=== PATIENT | male | born 1955 | race Caucasian/White ===

== ENCOUNTER 2020-06-05 13:52 | Outpatient (CLI) | payer OTHER, SELFPAY ==
--- NOTE | ~2020-06-05 | XR_ITS ---
XR chest 2V DATE: 06/05/2020 14:16 INDICATION: Pacemaker lead check TECHNIQUE: PA and lateral views COMPARISON: 10/23/2017 two-view chest FINDINGS: Left dual-lead pacemaker device with leads overlying right atrium and right ventricle. Normal heart size. No hilar or mediastinal enlargement. No pulmonary infiltrate or consolidation, ple ural effusion or pulmonary vascular congestion or pneumothorax. IMPRESSION: No active cardiopulmonary disease Left dual-lead pacemaker device Reviewed, dictated and finalized at location A.
== END 2020-06-05 13:53 | disposition home or self-care (01) ==
LOC: ANHIMG 14:02
PROVIDERS: Visit Provider Internal Medicine Cardiovascular Disease
DX: T82.110A Breakdown (mechanical) of cardiac electrode, initial encounter (principal); Z45.018 Encounter for adjustment and management of other part of cardiac pacemaker; Z95.0 Presence of cardiac pacemaker
CPT/HCPCS: 71046

== ENCOUNTER 2020-06-11 01:14 | Outpatient (CLI) | payer OTHER, SELFPAY ==
[2020-06-11 20:51] LABS: SARS-CoV-2 RNA PCR Negative
== END 2020-06-11 01:15 | disposition home or self-care (01) ==
LOC: ANHCOVIDDT 01:16
PROVIDERS: Visit Provider Internal Medicine Cardiovascular Disease
DX: Z01.812 Encounter for preprocedural laboratory examination (principal); Z20.828 Contact with and (suspected) exposure to other viral communicable diseases
CPT/HCPCS: 87635; C9803; U0003

== ENCOUNTER 2020-06-13 05:22 | Day surgery (SDC) | payer OTHER, SELFPAY ==
[2020-06-12 16:15] VITALS: BMI 27.9
[2020-06-13] VITALS (18 sets, daily range): BP systolic 104–179; BP diastolic 70–93; PULSE 50–62; RESP 11–18; TEMP 36.6–37.6; O2SAT 53–100; BMI 29.0
--- NOTE | ~2020-06-13 | XR_ITS ---
EXAMINATION: XR chest 2V DATE: 06/14/2020 08:43 INDICATION: 24 hours post pacemaker insertion TECHNIQUE: PA and lateral views of the chest are obtained. COMPARISON: 06/13/2020 FINDINGS: The lungs are free of acute opacities. There is no pleural effusion or pneumothorax. There is stable cardiomegaly. There is mild thoracic spondylosis. Again noted is a dual-lead pacemaker of t he left upper chest wall. Three pacemaker leads are again identified, two of which course into the ri ght ventricle and one of which does not appear to be attached to the pacer. IMPRESSION: 1. Pacemaker revision without evidence of pneumothorax. 2. Stable cardiomegaly. Reviewed, dictated and finalized at location A. SHEET METAL INSTALLER
--- NOTE | ~2020-06-13 | XR_ITS ---
EXAMINATION: XR chest 1V portable INDICATION: Pacemaker insertion TECHNIQUE: Portable AP chest at 1123 hours COMPARISON: 06/05/2020 FINDINGS: There is a dual-lead pacemaker of the left chest wall. Three pacemaker leads are identified , two of which course into the right ventricle. One of the ventricular leads does not appear to be at tached to the pacer. There is no pneumothorax. The lungs are free of acute opacities. There is stable cardiomegaly. IMPRESSION: 1. Pacemaker revision without evidence of pneumothorax. 2. Cardiomegaly. Reviewed, dictated and finalized at location A. OR PRODUCER
--- NOTE | 2020-06-13 07:00 | ECG_ITS ---
Measurements Intervals [place] Rate: 49 P: 148 WA: 200 QRS: 43 QRSD: 92 T: 14 QT: 455 QTc: 415 Interpretive Statements ELECTRONIC ATRIAL PACEMAKER BORDERLINE T WAVE ABNORMALITY- INFERIOR LEADS BORDERLINE ECG Electronically Signed On 06-13-2020 12:08:25 MIXING ROLL OPERATOR by Zackery Amador D.O.
[2020-06-13 07:40] LABS: Hematocrit 42.8 % (42.0-52.0); Mean Corpuscular Hemoglobin 31.1 pg (26-34); Mean Corpuscular Volume 88.6 fl (80-100); Mean Platelet Volume 12.5 fl (7.4-10.4); Platelet Count Result 136 k/mm3 (150-375); Red Blood Count 4.83 M/mm3 (4.6-6.20); White Blood Count 6.6 K/mm3 (4.5-10.0)
--- NOTE | 2020-06-13 07:47 | SUR.PREOP ---
Patient arrives to [facility] ambulatory with , Brittany. Patient updated on plan of care and verbalizes understanding. PIV x 2 initated in both arms, VSS, skin cleansed at procedure site. Will continue to monitor.
[2020-06-13 07:53] LABS: Anion Gap 8 mmol/L (8-16); Blood Urea Nitrogen 19 mg/dL (9-20); Calcium 8.9 mg/dL (8.4-10.2); Carbon Dioxide 30 mmol/L (22-30); Chloride 104 mmol/L (98-107); Estimated CRCL calculation 66 ml/min; Estimated Glomerular Filt Rate > 60; Glucose 109 mg/dL (75-110); Potassium 3.7 mmol/L (3.4-5.0); Sodium 142 mmol/L (137-145)
[2020-06-13 07:58] LABS: Eosinophils Absolute Manual 0.13 K/mm3 (0.02-0.5); Eosinophils Percent Manual 2 % (0-4); Lymphocytes Absolute Manual 1.78 K/mm3 (1.1-4.5); Monocytes Absolute Manual 0.59 K/mm3 (0.1-0.90); Monocytes Percent Manual 9 % (3-9); Neutrophils Percent Manual 62 % (46-73); Total Cells Counted 100
[2020-06-13 07:59] LABS: Large Platelets Present
--- NOTE | 2020-06-13 08:27 | PM.IMHP ---
H&P: HPI History of Present Illness Date/Time: 06/13/20 08:27 Chief complaint: RV Lead Retraction Narrative: Daniel Mina is a 64 year old male with history of [employer] pacemaker placed in [place], [place] a in February 2016. He also has history of CAD, [place] and stent in 2016, paroxysmal AFib, hypertension hyperlipidemia. Recently we have noted that his right ventricular lead threshold has increased significantly and his chest x-ray shows that the right ventricular lead has been retracted. He has been exercising and doing some hanging from a bar over his head and pull-ups which may be a contributing factor. He is here for a lead revision, possible needing a new pacer system on the left. he is feeling well today. Has had of held his Eliquis since June 10. Has been NPO. Review of Systems Constitutional: Constitutional: Reports no additional constitutional complaints and Denies chills Cardiovascular: Cardiovascular: Denies chest pain, Denies pedal edema, Denies lightheadedness and Denies palpitations Respiratory: Respiratory: Denies dyspnea and Denies dyspnea on exertion Gastrointestinal: Gastrointestinal: Denies abdominal pain Musculoskeletal: Musculoskeletal: Denies no additional musculoskeletal complaints Integumentary/Breasts: Skin/Breast: Denies rash Neurologic: Reports system reviewed and no additional complaints, except as documented Psychiatric: Psychiatric: Reports no additional psychiatric complaints [facility] Past Medical History Medical History (Updated 06/13/20 @ 08:41 by Tsering Reardon MD) CAD (coronary artery disease) [place] and RCA stent in 2016 Hyperlipidemia Hypertension Pacemaker [facility], 2016 Paroxysmal atrial fibrillation noted December 2017 Family History Family History (Updated 06/13/20 @ 08:37 by Tsering Reardon MD) Father CAD (coronary artery disease) Hx of CABG Other Hyperlipidemia Hypertension Social History Social History Smoking status: Never smoker Alcohol intake: never Substance use: never Substance use type: does not use Living arrangements: with family Gender identity (if verbalized by the patient): Male Sexual Orientation (if Verbalized by the Patient): Straight or Heterosexual Spiritual care concerns: No Meds Home Medications and Allergies Home Medications Medication Instructions Recorded Confirmed Type HydroDiuril 25 mg PO DAILY 06/12/20 06/12/20 History apixaban [Eliquis] 5 mg PO DAILY 06/12/20 06/12/20 History aspirin 81 mg PO DAILY 06/12/20 06/12/20 History diltiazem HCl 180 mg PO DAILY 06/12/20 06/12/20 History evolocumab 140 mg SUBCUT E2CIOUS 06/12/20 06/12/20 History olmesartan 40 mg PO DAILY 06/12/20 06/12/20 History rosuvastatin 40 mg PO DAILY 06/12/20 06/12/20 History Allergies Allergy/AdvReac Type Severity Reaction Status Date / Time No Known Allergies Allergy Verified 06/12/20 16:23 Vital Signs Vital Signs - 24 hr 06/13/20 07:40 Temperature 97.9 F Pulse Rate 62 Respiratory Rate 14 Blood Pressure 163/93 H Pulse Oximetry 100 Exam Narrative: Exam Narrative: fit-appearing middle-aged male in no distress Const: General: comfortable and no acute distress HENMT: General nose exam: no epistaxis Mouth: Yes moist mucous membranes Eyes: EOM: EOMs intact bilaterally Neck: Neck: supple Resp: Effort & Inspection: normal respiratory effort Auscultation: clear to auscultation bilaterally Cardio: Rate: regular rate Rhythm: regular rhythm Heart sounds: no murmurs GI: Inspection: non-distended GI Palp: Yes Soft to palpation and No Tenderness to palpation present (GI) Skin: General skin exam: normal color Other: skin over pacemaker site is well he Neuro: Cognition (Neuro): normal cognition Speech: normal speech Motor exam (neuro): Normal motor muscle tone present throughout Extrem: General: no edema Psych: Mental Status:
--- NOTE | 2020-06-13 08:43 | WPDMODSED ---
Moderate Sedation Note-Pt Data Patient Data Diagnosis: Right ventricular lead malfunction Present Complaint: right ventricular lead malfunction Procedure to be performed/Plan: conscious sedation venogram RV lead revision possible need for new pacer system on the right Allergies Allergy/AdvReac Type Severity Reaction Status Date / Time No Known Allergies Allergy Verified 06/12/20 16:23 Home Medications Medication Instructions Recorded Confirmed Type HydroDiuril 25 mg PO DAILY 06/12/20 06/12/20 History apixaban [Eliquis] 5 mg PO DAILY 06/12/20 06/12/20 History aspirin 81 mg PO DAILY 06/12/20 06/12/20 History diltiazem HCl 180 mg PO DAILY 06/12/20 06/12/20 History evolocumab 140 mg SUBCUT [id number] 06/12/20 06/12/20 History olmesartan 40 mg PO DAILY 06/12/20 06/12/20 History rosuvastatin 40 mg PO DAILY 06/12/20 06/12/20 History Current Medications: Active Medications Cefazolin Sodium (Ancef 1 Gm/D5w 50 Ml Pm) 1 gm in 50 mls @ 100 mls/hr IVPB ONCE ONE Stop: 06/13/20 08:59 Sedation/Anesthesia: No previous sedation/anesthesia problems (including family history). [facility] Past Medical History Medical History (Updated 06/13/20 @ 08:41 by Tsering Reardon MD) CAD (coronary artery disease) [place] and RCA stent in 2016 Hyperlipidemia Hypertension Pacemaker [facility], 2016 Paroxysmal atrial fibrillation noted December 2017 Family History Family History (Updated 06/13/20 @ 08:37 by Tsering Reardon MD) Father CAD (coronary artery disease) Hx of CABG Other Hyperlipidemia Hypertension Social History Social History Smoking status: Never smoker Alcohol intake: never Substance use: never Substance use type: does not use Living arrangements: with family Gender identity (if verbalized by the patient): Male Sexual Orientation (if Verbalized by the Patient): Straight or Heterosexual Spiritual care concerns: No Mod Sed Physical Exam Physical Exam Pre Procedural Exam: Normal: Appearance, Eyes, Ears, Nose, Neck, Throat, Airway, Lungs, Heart Size, Heart Rate, Heart Rhythm, Neuro Exam, Abdomen, Extremities and Skin ( pacemaker incision is well-healed) Hours since solid foods: 12 Hours since liquid intake: 12 Internal Medicine - PN: Obj Da Vital Signs Vital Signs: Vital Signs - 24 hr 06/13/20 07:40 Temperature 97.9 F Pulse Rate 62 Respiratory Rate 14 Blood Pressure 163/93 H Pulse Oximetry 100 Meds/Results Medications: Active Medications Generic Name Dose Route Start Last Admin Trade Name Freq PRN Reason Stop Dose Admin Cefazolin Sodium 1 gm in 50 mls @ 100 mls/hr 06/13/20 08:30 Ancef 1 Gm/D5w 50 Ml Pm IVPB 06/13/20 08:59 ONCE ONE Labs CBC & Chem 7: 06/13/20 07:33 06/13/20 07:33 Labs: Laboratory Results - last 24 hr 06/13/20 06/13/20 06/13/20 07:33 07:33 07:33 WBC 6.6 RBC 4.83 Hgb 15.0 Hct 42.8 MCV 88.6 MCH 31.1 MCHC 35.0 RDW 13.0 Plt Count 136 L MPV 12.5 H Immature Gran % (Auto) Not Reportable Neut % (Auto) Not Reportable Lymph % (Auto) Not Reportable Ware % (Auto) Not Reportable Eos % (Auto) Not Reportable Baso % (Auto) Not Reportable Lymph # (Auto) Not Reportable Ware # (Auto) Not Reportable Eos # (Auto) Not Reportable Baso # (Auto) Not Reportable Abs Immat Gran (auto) Not Reportable Absolute Neuts (auto) Not Reportable Absolute Nucleated RBC Not Reportable Total Counted 100 Neutrophils % (Manual) 62 Lymphocytes % (Manual) 27.0 Monocytes % (Manual) 9 Eosinophils % (Manual) 2 Nucleated RBC % Not Reportable Abs Lymphs (Manual) 1.78 Abs Monocytes (Manual) 0.59 Absolute Eos (Manual) 0.13 Platelet Estimate Slightly decreased Large Platelets Present PT 14.0 INR 1.0 Sodium 142 Potassium 3.7 Chloride 104 Carbon Dioxide 30 Anion G
--- NOTE | 2020-06-13 10:57 | PM.OP ---
Procedure Note - Brief Procedure Note - Brief Date of procedure: 06/13/20 Pre-op diagnosis: RV Lead Retraction right ventricular lead dysfunction Post-op diagnosis: same Procedure performed: conscious sedation venogram implantation of a new right ventricular lead Description of procedure: uneventful implant of a right ventricular Anesthesia: local ( with conscious sedation) Surgeon: Tsering Reardon MD Estimated blood loss (mL): 10 Drains: No Packing: No Complications: No immediate complications Condition: stable Disposition: observation
--- NOTE | 2020-06-13 10:58 | PM.PROC ---
Procedure Note - Detailed Date of procedure: 06/13/20 Pre-op diagnosis: RV Lead Retraction Right ventricular lead malfunction, high thresholds. Original pacemaker implanted in 2016 for bradycardia. History of paroxysmal AFib. Does use the RV lead occasionally. High and increasing right ventricular thresholds noted recently. The lead tip appeared to have retracted on CXR c.t. a previous CXR. I have recommended revision of the right ventricular lead. Post-op diagnosis: same Procedure performed: conscious sedation venogram implantation of a new transvenous right ventricular Description of procedure: PROCEDURE PERFORMED: Conscious sedation Venogram Placement of a permanent dual-chamber pacemaker SITE: Left prepectoral area MEDICATIONS GIVEN IN LAUNDRY EQUIPMENT OPERATOR: Ancef 1 gram IV piggyback CONSCIOUS SEDATION: Assessment: The patient has no history of anesthesia problems. The patient's oropharynx is clear. The patient was deemed to be a good candidate for conscious sedation. The patient had continuous hemodynamic monitoring during the procedure. Start time: 9:26 a.m. Completion time: 10:45 a.m. Total conscious sedation time: 79 minutes Medications: Versed 8 mg, fentanyl 200 mcg IV push Trained observer: Isabella Meadows RN Outcome: The patient tolerated the procedure well with no complications. PROCEDURE: After informed consent , the patient was brought to the recyclable materials collector and the left prepectoral area was prepped and draped in usual fashion . The patient received preop antibiotic and conscious sedation . a venogram was performed which showed that the left subclavian vein was patent although tortuous. I attempted to visualize the left subclavian vein with vascular ultrasound hoping for a lateral subclavian /axillary vein puncture for access, but unfortunately pulse generator was superimposed upon subclavian vein. The left prepectoral area was anesthetized with lidocaine . Next a skin incision was made and carried down to the capsule which was incised. The pacemaker and leads were dissected from the capsule and prepectoral area. Hemostasis was obtained using electrocautery . The left subclavian vein was easily accessed with the micropuncture technique, and a J-tip guide wire was passed into the superior vena cava under fluoroscopic guidance . The needle was withdrawn . A 6 Nigerien safety sheath was passed over the lateral wire, the wire withdrawn. I was unable to pass the right ventricular lead into the right heart because of the tortuosity of the venous system. The 6 Nigerien short safety sheath was replaced with a 6 Nigerien long safety sheath, and the right ventricular lead was passed into the inferior vena cava under fluoroscopic guidance . The lead was then prolapsed through the tricuspid valve and advanced into the right ventricular apex. When suitable sensing and pacing thresholds were obtained, it was screwed into place. No extra cardiac stimulation was obtained using 10 volts. The sheath was withdrawn. the lead was secured to the prepectoral fascia using 2-0 silk over it's sleeve. I unscrewed the existing right ventricular lead , which had no obvious external abnormality, from the pulse generator and securely screwed the new lead to the generator. A gentle tug showed the leads were securely fastened. I passed a wire down the existing old RV lead, in attempt to withdraw it but I could not retract the screw so the lead was capped. The pocket was cleansed with antibiotic containing solution . The device was introduced into the pocket and a stay stitch was applied with 2-0 silk suture. The subcutaneous tissues were closed in a double layer fashion with interrupted sutures, using 2-0 Vicryl suture , and the skin was closed in a continuous fashion using 4-0 Vicryl suture in a continuous fashion. The area was cleansed, and an Aquacel dressing was applied , as was a pressure dress
--- NOTE | 2020-06-13 13:16 | ADMGEN ---
This patient, Daniel Mina, was admitted to [facility]. Patient/family oriented to hospital policies and general routines including ID bracelet, bed and alarms, visiting hours, pain management, procedures, bathroom and other care routines, personal items, smoking policy, room service/diet, and visiting hours. Information on how to activate the Rapid Response Team has been discussed. Patient/Family are encouraged to report perceived risks to care and to ask questions if they do not understand what they are told or what they should do.
[2020-06-13] MEDS: ceFAZolin 2 GM/D5W 50 ML 2 GM/50 ML BAG IVPB ×2 (16:06→23:50)
--- NOTE | 2020-06-13 17:56 | SUR.PHASEII ---
1210-pt transferred to PCS charting.
[2020-06-14] VITALS: PULSE 50
[2020-06-14 02:00] VITALS: PULSE 51
[2020-06-14 03:46] VITALS: BP 137/82; PULSE 51; RESP 16; TEMP 37.2; O2SAT 97
[2020-06-14 04:00] VITALS: PULSE 56
[2020-06-14 06:00] VITALS: PULSE 51
[2020-06-14] MEDS: ROSUVASTATIN 10 MG TABLET 40 MG PO (08:25)
[2020-06-14] MEDS: dilTIAZem HCL CD 180 MG CAP.ER.24H PO (08:25)
[2020-06-14] MEDS: ASPIRIN 81 MG CHEWABLE TABLET PO (08:25)
[2020-06-14] MEDS: hydroCHLOROthiazide 25 MG TABLET PO (08:25)
[2020-06-14] MEDS: OLMESARTAN MEDOXOMIL 20 MG TABLET 40 MG PO (08:25)
[2020-06-14 08:39] VITALS: BP 146/82; PULSE 49; RESP 16; TEMP 36.9; O2SAT 97
--- NOTE | 2020-06-14 10:30 | PM.DS ---
DS: Admitting Diagnosis Admitting Diagnosis Admitting Diagnosis: RV Lead Retraction DS: Discharge Diagnosis Discharge Diagnosis (1) Pacemaker lead malfunction: Code(s): T82.110A - Breakdown (mechanical) of cardiac electrode, initial encounter Status: Acute Assessment and Plan: Right ventricular lead replacement 06/13/2020. Devices per functioning normally as programmed. Right ventricular lead impedance within normal limits. Chest x-ray: No pneumothorax. DS: Summary Hospital Course Reason for hospitalization: RV lead revision or replacement Hospital Course: Daniel Mina is a 64 year old male with history of [employer] pacemaker placed in [facility] in February 2016. He also has history of CAD, [place] and stent in 2016, paroxysmal AFib, hypertension hyperlipidemia. Recently his right ventricular lead threshold has increased significantly and his chest x-ray shows that the right ventricular lead has been retracted. He had been exercising and doing some hanging from a bar over his head and pull-ups which may be a contributing factor. He was brought to the cardiac catheterization lab on 06/13/[address] Reardon for right ventricular lead revision or replacement. The lead was replaced. The old lead was capped. No pneumothorax on chest x-ray on day procedure nor the morning after. On the day of discharge the lead was functioning normally with threshold within normal limits. He had very little discomfort at the left subclavian site. The site was Without drainage. Aquacel dressing intact. The pocket was soft with some very slight swelling but no ecchymosis. His left breast was also slightly edematous. Eliquis to be resumed on 06/18/2020. He is scheduled for dressing removal, incision checked and pacemaker check on 06/19/2020. Status at Discharge Functional status at discharge: independent ambulation Overall status at discharge: patient is back to baseline Time Spent with Patient Time attestation: Total time spent providing and/or coordinating discharge services: 15 minutes in the room discussing activity restrictions, 10 minutes to do discharge orders. 10 minutes to do discharge summary. Total time to do discharge 35 minutes. Time spent: Greater than 30 minutes Exam Narrative: Exam Narrative: Middle-aged male sitting comfortably in chair. No distress. Const: General: comfortable and no acute distress HENMT: General nose exam: Normal nares present and no epistaxis Mouth: Yes moist mucous membranes Eyes: EOM: EOMs intact bilaterally Neck: Neck: supple Resp: Effort & Inspection: normal respiratory effort Auscultation: clear to auscultation bilaterally Cardio: Rate: regular rate Rhythm: regular rhythm Heart sounds: no murmurs Peripheral pulses: Peripheral pulses 2+ throughout Other: Left subclavian Aquacel dressing without drainage. Pacemaker pocket and left breast as above GI: Inspection: non-distended Skin: General skin exam: normal color Other: skin over pacemaker site is well he Neuro: Cognition (Neuro): normal cognition Speech: normal speech Motor exam (neuro): Normal motor muscle tone present throughout Extrem: General: no edema Psych: Mental Status: mental status grossly normal Affect: normal affect DS: Data Imaging Radiologist's impression: Chest x-ray:no pneumothorax 12/2019 or 06/14/2020 Discharge Plan Discharge Patient Disposition: Home, Self-Care Discharge Instructions: ACTIVITY: No driving until you are seen in the office for your incision check. No lifting, pushing or pulling more than 5 pounds with left arm for 1 MONTH No lifting left arm above shoulder height for 1 MONTH Wear immobilizer only if you are unable to remember the above activity restrictions. Recommend that it be worn at night. You may shower AFTER you are seen for incision check on June 19 but no tub baths, swimming pool or hot tub for 1 MONTH FOLLOW-UP:
== END 2020-06-14 11:45 | disposition home or self-care (01) ==
LOC: ANHCATHLAB 07:04 → ANHCPC 12:19 → ANHIMU 21:32
PROVIDERS: Visit Provider Internal Medicine Cardiovascular Disease
PROC: (CPT 33216; principal; 2020-06-13 08:30)
DX: T82.110A Breakdown (mechanical) of cardiac electrode, initial encounter (principal); R00.1 Bradycardia, unspecified; I25.10 Atherosclerotic heart disease of native coronary artery without angina pectoris; Z95.5 Presence of coronary angioplasty implant and graft; I25.2 Old myocardial infarction; I10 Essential (primary) hypertension; E78.5 Hyperlipidemia, unspecified; I48.0 Paroxysmal atrial fibrillation; Z79.01 Long term (current) use of anticoagulants; Z79.82 Long term (current) use of aspirin; Z79.899 Other long term (current) drug therapy; X58.XXXA Exposure to other specified factors, initial encounter
CPT/HCPCS: 33216; 33235; 36415; 71045; 71046; 80048; 85025; 85610; 93005; A9270; C1898; J0690; J2250; J3010; J7040

== ENCOUNTER 2023-01-13 15:06 | Outpatient (CLI) | payer OTHER, MEDICARE, SELFPAY ==
--- NOTE | ~2023-01-13 | XR_ITS ---
XR hand LT min 3V DATE: 01/13/2023 15:41 INDICATION: Left hand pain TECHNIQUE: 3 views COMPARISON: None FINDINGS: There is periarticular osteoarthritis involving particularly the first carpal metacarpal abilio int. There is mild osteophyte is at the second metacarpophalangeal joint. There is osteoarthritic joshua nge at multiple interphalangeal joints. No fracture, dislocation, periosteal reaction or bone destruction, erosive change or chondrocalcinosi s is evident. IMPRESSION: Polyarticular osteoarthritis Reviewed, dictated and finalized at location []
--- NOTE | ~2023-01-13 | XR_ITS ---
XR shoulder LT min 2V DATE: 01/13/2023 15:41 INDICATION: Left shoulder and hand pain TECHNIQUE: 4 views COMPARISON: None FINDINGS: There is a healed fracture of the midshaft of the left clavicle. There is mild degenerative spurring of the left, clavicular joint. No other fracture or dislocation, periosteal reaction or bone destruction of the left shoulder is det ected. Left-sided transvenous pacemaker device. IMPRESSION: Mild degenerative spurring of the left acromioclavicular joint Old healed clavicular shaft fracture Reviewed, dictated and finalized at location []
== END 2023-01-13 15:07 | disposition home or self-care (01) ==
DX: M19.042 Primary osteoarthritis, left hand (principal); M75.82 Other shoulder lesions, left shoulder; Z87.81 Personal history of (healed) traumatic fracture
CPT/HCPCS: 73030; 73130

== ENCOUNTER 2023-03-12 10:49 | Outpatient (CLI) | payer OTHER, MEDICARE, SELFPAY ==
--- NOTE | ~2023-03-12 | XR_ITS ---
Left Knee Technique: AP, lateral, and oblique, and sunrise views were obtained. Clinical History: Pain Findings: No fracture or dislocation is seen. Osseous alignment is anatomic. Joint spaces are preserv ed without degenerative or erosive change. Somewhat poor definition of the distal quadriceps tendon n oted. No joint effusion is seen. Impression: Somewhat poor definition of the distal quadriceps tendon. This may be technical in nature. Correlate clinically for any concern for distal quadriceps tendon injury. Follow-up MR should be considered if there is concern for this entity. Reviewed, dictated and finalized at location . Impression: Somewhat poor definition of the distal quadriceps tendon. This may be technical in nature. Correlate clinically for any concern for distal quadriceps tendon i njury. Follow-up MR should be considered if there is concern for this entity.
== END 2023-03-12 10:50 | disposition home or self-care (01) ==
DX: M25.562 Pain in left knee (principal)
CPT/HCPCS: 73564

== ENCOUNTER 2023-06-18 14:18 | Outpatient (CLI) | payer OTHER, MEDICARE, SELFPAY ==
--- NOTE | ~2023-06-18 | CT_ITS ---
EXAMINATION: CT LE LT wo con DATE: 06/18/2023 14:52 INDICATION: Hematoma at the left lower leg. TECHNIQUE: High resolution computed tomography (CT) of the left lower leg from the knee through the f oot was performed without intravenous contrast. Additional sagittal and coronal reconstructions were performed. Automated exposure control and iterative reconstruction technique were employed. The dose- length product was 1269.85 mGy-cm. COMPARISON: None FINDINGS: Bone alignment is normal. No fracture. 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 Prominent heterotopic ossicles a long the anterior superficial deltoid ligament which likely sequela of chronic sprain. Additional pro minent osteophytes along the dorsal neck of the talus. Achilles and plantar calcaneal enthesophytes a nd enthesopathic ossification. Additional small heterotopic ossicle along the distalmost flexor hallu x longus myotendinous junction which could be related to chronic trauma or potentially a loose body w ithin a ganglion cyst. Small simple fluid attenuation left knee joint effusion. Moderate-sized Johns's cyst with low simple fluid attenuation in the anterior component of the cyst and heterogeneous high attenuation likely rel ated to synovitis although differential would include blood in the posterior component of the cyst. T here is a lenticular intramuscular fluid collection within the proximal medial head of the gastrocnem ius muscle which measures 7.3 cm craniocaudally and up to 2.7 x 1.7 cm in maximal transaxial dimensio ns which demonstrates greater than simple fluid attenuation of Hg 35 which be consistent with provide d history of a hematoma. This located relatively superficially within the muscle belly. Deeper along the proximal myotendinous junction of the Achilles tendon there is nonuniform thickness of the tendon which localizes to region of increased fat without edema along the subcutaneous plane between the ca lcaneus and deeper soleus muscle which suggests sequela of chronic partial tear of the tendon. IMPRESSION: 1. 7.3 x 2.7 x 1.7 cm lenticular intramuscular lesion within the relatively superficial proximal medi al head of the gastrocnemius which demonstrates greater than simple fluid attenuation consistent with provided history of hematoma. Differential would include abscess in November per clinical setting and g iven the absence of intravenous contrast could not absolutely exclude soft tissue neoplasm. Reviewed, dictated and finalized at location A. TIC PERFORMER IMPRESSION: 1. 7.3 x 2.7 x 1.7 cm lenticular intramuscular lesion within the relatively sup erficial proximal medial head of the gastrocnemius which demonstrates greater t blackwell simple fluid attenuation consistent with provided history of hematoma. Diff erential would include abscess in November per clinical setting and given the abse nce of intravenous contrast could not absolutely exclude soft tissue neoplasm.
== END 2023-06-18 14:19 | disposition home or self-care (01) ==
LOC: ANHIMG 14:22
DX: S80.12XA Contusion of left lower leg, initial encounter (principal)
CPT/HCPCS: 73700

== ENCOUNTER 2023-12-31 00:30 | Day surgery (SDC) | payer OTHER, MEDICARE, SELFPAY ==
--- NOTE | 2023-12-16 10:42 | PC.NURSE ---
Report to the Outpatient Waiting Room, entrance under the green pavilion located off [facility], at time _1000 on date _12/31/23 . Planned Procedure Time: __1200 . Time changes happen often and if your time is changed the preop area will call you the afternoon before. - You and your visitor will be asked to self-screen and do not enter if you have any COVID symptoms. - A mask is optional within the hospital at this time. Patients may have clear liquids (water, carbonated beverages, clear teas, apple juice) until 3 hours prior to surgery ( 9:00 AM ) with a maximum of 20 ounces. - No food from midnight until time of surgery - Infants may have breast milk until 4 hours before surgery, infant formula 6 hours prior to surgery. - Children will be allowed to drink immediately following surgery. If applicable, please bring a bottle or sippy cup to assist with drinking. Juice, water, soda, and popsicles are readily available. For infants on formula, please bring formula the day of surgery. Pacifiers are allowed. Take the following medications with a SIP of water the morning of surgery: ____DILTIAZEM DO NOT STOP ANY OF YOUR OTHER PRESCRIPTION MEDICATIONS PRIOR TO SURGERY ?EXCEPT THE FOLLOWING Medications to discontinue per physician _HOLD ASPIRIN 7 DAYS PRE OP.LAST DOSE 12/23/23 .PT TO CALL ABOUT MARKO HOLD ALL VITAMINS 3 DAYS PRE OP.LAST DOSE 12/27/23 Please no make-up, nail azerbaijani, hairspray, perfume, deodorant, or body powder the day of surgery. No jewelry (including any body piercings) or valuables the day of surgery, leave them at home. Please take a shower or bath the night before, or the morning of, surgery with an antibacterial soap. Wear comfortable, loose fitting clothing. Children are encouraged to wear pajamas. - Jewelry must be removed prior to entering the operating room. Rings and piercings that are not removed may be cut off. - The hospital will not accept responsibility for valuables. - Please leave all valuables, including medications, at home the day of surgery. If you are going home after surgery, a licensed hearse driver must drive you home. - NO public transportation without another adult if you receive anesthesia. - We recommend that an adult stay with you for 24 hours following discharge. - We also recommend that you do not drive, make important decision, drink alcoholic beverages, or take any drugs that were not prescribed by your health care provider for at least 24 hours after your discharge time. Follow any additional instructions given to you from your surgeon. If you or anyone in your household have experienced Covid symptoms in the past week, please notify your surgeon or the nurse liaison at the phone number below for possible testing. Telephone instructions given to ___PATIENT and asked if any additional questions and then verbalized understanding. Patient advised to call surgeon office or pre surgery nurse liaison [phone] if any additional questions.
[2023-12-16 10:55] VITALS: BMI 28.7
[2023-12-31] VITALS (9 sets, daily range): BP systolic 143–171; BP diastolic 86–99; PULSE 57–62; RESP 12–18; TEMP 36.1–36.5; O2SAT 98–100
--- NOTE | 2023-12-31 07:46 | WPDANESEPPF ---
Anes - Initial Pre Proc Eval Procedure: Operation Date: 12/31/23 12:00 Proposed Procedures p Left Shoulder Arthroscopy, Rotator Cuff Repair with Subacromial Decompression - Cole Shipley MD Date/Time: 12/31/23 07:46 Surgeon: Cole Shipley MD Pre Op Diagnosis: left shoulder partial rotator cuff tear Patient Data Age: 68 Gender: M Height: 1.78 m Weight: 90.75 kg Allergies Allergy/AdvReac Type Severity Reaction Status Date / Time metoprolol AdvReac Unknown Fatigued Uncoded 12/16/23 10:30 Home Medications Medication Instructions Recorded Confirmed Type apixaban 5 mg tablet (Eliquis) 5 mg PO DAILY 06/12/20 12/31/23 History aspirin 81 mg tablet 81 mg PO DAILY 06/12/20 12/31/23 History diltiazem HCl 180 mg capsule,24 180 mg PO DAILY 06/12/20 12/31/23 History hr,extended release rosuvastatin 40 mg tablet 10 mg PO DAILY 06/12/20 12/31/23 History evolocumab 140 mg/mL subcutaneous 140 mg subcut [id number] 03/12/23 12/16/23 History pen injector ([employer]as) hydrochlorothiazide 25 mg tablet 25 mg PO DAILY 03/12/23 12/16/23 History amlodipine 10 mg-olmesartan 40 mg 1 tablet PO DAILY 12/16/23 12/16/23 History tablet multivitamin 1 tablet PO DAILY 12/16/23 12/16/23 History oxycodone-acetaminophen 5 mg-325 1 - 2 tablet PO Q4-6H PRN pain #30 12/31/23 Rx mg tablet tabs Patient hx anesthesia problems: none Family hx anesthesia problems: none Results Review: All pre-operative results and documents have been reviewed as part of the pre-operative evaluation. [facility] Past Medical History Medical History (Updated 12/31/23 @ 11:03 by AMRITA Zuleta) Acute ST segment elevation myocardial infarction 2016 CAD (coronary artery disease) UT and RCA stent in 2015 Hyperlipidemia Hypertension Pacemaker [employer], 2016 Paroxysmal atrial fibrillation noted December 2017 Surgical History Surgical History (Updated 12/31/23 @ 07:47 by Abdon Choi DO) History of coronary artery stent placement History of hernia repair Inguinal History of parathyroidectomy Status post placement of cardiac pacemaker (~02/28/16) Status post placement of cardiac pacemaker (~06/13/20) Family History Family History Father CAD (coronary artery disease) Hx of CABG Grandparent Myocardial infarction Malignant neoplasm of bone Parkinson disease Other Hyperlipidemia Hypertension Social History Social History Smoking status: Never smoker Second hand tobacco smoke exposure: Yes Alcohol intake: never Substance use: never Substance use type: does not use Do You Feel Safe in your Home?: Yes Lack of Transportation: No Lack of Food: Never True Current Housing: I Have Housing Concerned About Future Housing: No Difficulty Paying Gas/Electric Bills: No Difficulty Paying for Meds: No Currently Unemployed: No Education: Bachelor's Degree Difficulty w/ Childcare or Family Care: No Living arrangements: with family Gender identity (if verbalized by the patient): Male Sexual Orientation (if Verbalized by the Patient): Straight or Heterosexual Spiritual care concerns: No Anes - Eval Final PreProcedure Day of Procedure 12/31/23 07:46 Patient weight: overweight Heart: regular rate and rhythm Lungs: clear to auscultation Airway: Mallampati scale class II Neurological: alert and oriented Last oral intake: >/= 8 hours ASA classification: III Emergent: no Anesthetic plan: proceed Anesthesia type and monitoring: general ETT and standard monitoring Results Review: All pre-operative results and documents have been reviewed as part of the pre-operative evaluation. Informed Consent: The patient's anesthetic plan and its attendant risks and benefits were discussed with the patient/family/POA. Questions were solicited and answers provid
[2023-12-31] MEDS: EPINEPHrine HCL INJ 1 MG/ML AMPUL 3 MG IRRIGATION (10:02)
[2023-12-31] MEDS: LACTATED RINGERS 1,000 ML 30 ML IV CONT ×2 (10:45→14:00)
[2023-12-31] MEDS: KETOROLAC 15 MG/ML VIAL (*BKC) IV PUSH (10:45)
[2023-12-31] MEDS: ACETAMINOPHEN 500 MG TABLET 1000 MG PO (10:45)
[2023-12-31 10:51] LABS: Anion Gap 5 mmol/L (4-12); Blood Urea Nitrogen 16 mg/dL (9-20); Calcium 9.5 mg/dL (8.4-10.2); Carbon Dioxide 30 mmol/L (22-30); Chloride 107 mmol/L (98-107); Estimated CRCL calculation 69 ml/min; Estimated Glomerular Filt Rate > 60; Glucose 98 mg/dL (65-110); Potassium 4.1 mmol/L (3.4-5.0); Sodium 142 mmol/L (137-145)
--- NOTE | 2023-12-31 11:48 | PM.IMHP ---
H&P: HPI History of Present Illness Date/Time: 12/31/23 11:48 Chief Complaint: Left shoulder pain Details: Left shoulder pain progressive over the past year.? New onset left knee pain over the past several weeks.? The shoulder hurts primarily with reaching to the side and up.? He has a range of motion that causes the catch and reproducible pain.? Pain is in the anterolateral deltoid area.? No instability or associated symptoms.? He continues to exercise regularly. Review of systems:? Recent pacemaker lead change.? History of heart disease.? UT and stent.? On Eliquis.? Unable to obtain an MRI. Examination: Healthy-appearing male.? Muscular.? Painful range of motion.? Positive impingement signs.? Full range of motion.? Good rotator cuff strength.? Tender at the anterolateral acromial area, and biceps tendon.? AC joint benign. Diagnostics Left shoulder outside films show subtle irregularity at the greater tuberosity with a tiny spur.? No superior elevation of the had or arthritic changes.? Minimal downsloping acromion.? No glenohumeral arthritis noted.? Radiograph is obscured by the overlying pacemaker. Previous Ultrasound examination of the shoulder performed with the 12 megahertz ultrasound probe.? Transverse and sagittal images were obtained of the biceps tendon, subscapularis, and supraspinatus tendons. The biceps tendon appeared inflamed with moderate fluid signal circumferentially.? Small large area of fluid also noted more proximally.? The subscapularis appeared intact throughout its length.. The supraspinatus showed hypoechoic signal consistent with tendinosis and low-grade bursal side partial thickness tear. ? The bursa was thickened but without evidence of fluid. Impression? Low-grade partial-thickness bursal side rotator cuff tear.? Also marked tendinosis of the supraspinatus tendon.? Tendinitis of the biceps tendon with significant fluid signal.? These findings were confirmed by diagnostic ultrasound in March 2023.? He is unable to obtain an MRI due to a pacemaker. He has failed conservative treatment including formal physical therapy and activity modification. Patient would like to proceed with cuff repair and decompression. Possible biceps tenodesis. Possible regeneten repair. Proceed with left arthroscopic rotator cuff repair and subacromial decompression. We discussed the risks, benefits, and alternatives to surgery. [facility], [facility] Past Medical History Medical History (Updated 12/31/23 @ 11:03 by AMRITA Zuleta) Acute ST segment elevation myocardial infarction 2016 CAD (coronary artery disease) UT and RCA stent in 2016 Hyperlipidemia Hypertension Pacemaker [facility], 2016 Paroxysmal atrial fibrillation noted December 2017 Surgical History Surgical History (Updated 12/31/23 @ 07:47 by Abdon Choi DO) History of coronary artery stent placement History of hernia repair Inguinal History of parathyroidectomy Status post placement of cardiac pacemaker (~02/28/16) Status post placement of cardiac pacemaker (~06/13/20) Family History Family History Father CAD (coronary artery disease) Hx of CABG Grandparent Myocardial infarction Malignant neoplasm of bone Parkinson disease Other Hyperlipidemia Hypertension Social History Social History Smoking status: Never smoker Second hand tobacco smoke exposure: Yes Alcohol intake: never Substance use: never Substance use type: does not use Do You Feel Safe in your Home?: Yes Lack of Transportation: No Lack of Food: Never True Current Housing: I Have Housing Concerned About Future Housing: No Difficulty Paying Gas/Electric Bills: No Difficulty Paying for Meds: No Currently Unemployed: No Education: Bachelor's Degree Difficulty w/ Childcare or Family Care: No Living arrangements: with family G
--- NOTE | 2023-12-31 11:51 | WPDHPUPDATE1 ---
History and Physical Update Update Date/Time: 12/31/23 11:51 History and Physical has been reviewed, including an updated exam of the patient. There are NO changes in the patient's condition. Risks, benefits, and alternatives have been discussed and questions answered. Patient agrees to proceed with procedure.
--- NOTE | 2023-12-31 11:57 | WPDANESPNB ---
Anes - Peripheral Nerve Block Date/Time: 12/31/23 11:57 I have discussed with the patient/family/POA the placement of a peripheral nerve block for post-operative pain management, including associated risks, benefits, complications, and side effects. Alternative methods of post-operative analgesia were detailed. Questions were solicited and answers provided to the satisfaction of the patient/family/POA. Time-Out: A pre-procedural Time-Out was completed immediately before starting the procedure and confirmed: Patient Identification, Site, Procedure, Patient Position and the Availability of Requisite Equipment. Clinical Indications: Acute post-operative pain management requested by the operative surgeon. Nerve Block Insertion Note Anes-nerve block: interscalene left Patient position: supine Skin prep: chlorhexidine Needle: 22 gauge, stimulating, insulated echogenic needle. Needle length: 50 mm Technique: ultrasound Injectate: bupivacaine 0.5% with epi 5 mcg/ml (30cc- no epi) Observations: tolerated well Complications: none Procedure start time:: 1140 Procedure end time:: 1146
[2023-12-31] MEDS: ceFAZolin 2 GM/D5W 50 ML 2 GM/50 ML BAG IVPB (12:04)
--- NOTE | 2023-12-31 13:57 | W.PM.PROC2 ---
Procedure Note - Detailed Date of Procedure 12/31/23 Pre-op Diagnosis 1. Left shoulder partial rotator cuff tear 2. Biceps tendinosis Post-op Diagnosis Same Procedure Performed Left shoulder 1. Arthroscopic rotator cuff repair 2. Arthroscopic subacromial decompression 3. Arthroscopic biceps tenotomy Surgeon Cole Shipley MD Anesthesia General and [facility] ( interscalene block) Findings High-grade partial supraspinatus tear. Articular side mid grade tear. Low-grade bursal side. There was fraying of the tissue which appeared to be notably impinging on the subacromial bone. The rotator cable was intact. The remaining healthy tissue appeared very vascular. Repair with large Regeneten collagen implant and 6 BERNABE soft tissue anchors 2 peek bone anchors. Biceps was significantly frayed as it entered the joint. A tenotomy was performed. The articular cartilage was healthy. There was impingement treated with acromioplasty. Description of Procedure Preoperative antibiotics were given. An interscalene block was administered in the preoperative area. The patient was bought brought to the operating room. A general anesthetic was administered. The patient was carefully positioned in the beach chair position. The head and neck were carefully positioned. The non operative extremity was also carefully positioned. The shoulder was prepped and draped in the usual sterile fashion. Examination was performed. Standard posterior and anterior arthroscopic portals were established. Inflow achieved with the arthroscopic pump using saline and epinephrine. The glenohumeral joint was carefully inspected. The glenohumeral articular cartilage was normal. The labrum showed minimal degenerative fraying. The biceps was severely frayed as it entered the joint approximately 50%. Subscapularis was intact. Biceps tenotomy was performed. The radiofrequency probe was used to take down the biceps with a portion of the superior labrum. It did not retract. This suggested some degree of scarring in the bicipital groove from chronic degeneration. Attention was turned to the subacromial space. A complete bursectomy was performed. The bursa was quite thickened. There was a layer of superficial bursa that was lifted up towards the posterior aspect. This was gently debrided an estimated at 10% thickness. The remaining superior rotator cuff appeared quite healthy. There was a small soft spot which had been marked earlier. However the overall integrity of the tissue was good. It was elected to proceed with repair using the Regeneten collagen implant. Six BERNABE anchors were placed in the medial aspect of the tendon. Two bone peek anchors were placed laterally. The arthroscopic instruments were removed. The wounds were closed with 3-0 Monocryl subcuticular suture and steri strips. There were no complications. A sling was applied and the patient brought to the recovery room. Implants [employer] Regeneten collagen implant. Six BERNABE soft tissue anchors. Two peek bone anchors. Estimated Blood Loss 10 Pathology None sent Complications No immediate complications Condition Stable Disposition PACU [facility] Billing Surgery - Charge Forward: Surgery Billing
== END 2023-12-31 16:00 | disposition home or self-care (01) ==
PROVIDERS: Anesthesiology; Visit Provider Orthopaedic Surgery
PROC: (CPT 29805; principal; 2023-12-31 12:00)
DX: M75.112 Incomplete rotator cuff tear or rupture of left shoulder, not specified as traumatic (principal); M75.22 Bicipital tendinitis, left shoulder; I10 Essential (primary) hypertension; E78.5 Hyperlipidemia, unspecified; I25.10 Atherosclerotic heart disease of native coronary artery without angina pectoris; I25.2 Old myocardial infarction; I48.0 Paroxysmal atrial fibrillation; G89.18 Other acute postprocedural pain; Z79.01 Long term (current) use of anticoagulants; Z79.82 Long term (current) use of aspirin; Z79.85 Long-term (current) use of injectable non-insulin antidiabetic drugs; Z79.891 Long term (current) use of opiate analgesic; Z98.890 Other specified postprocedural states; Z95.0 Presence of cardiac pacemaker; Z95.5 Presence of coronary angioplasty implant and graft; Z80.8 Family history of malignant neoplasm of other organs or systems; Z82.49 Family history of ischemic heart disease and other diseases of the circulatory system
CPT/HCPCS: 29827; 29826; 64415; 36415; 80048; A4565; A9270; C1713; J0171; J0690; J1885; J2250; J3010; J7120